=== PATIENT | female | born 1990 | race Caucasian/White ===

== ENCOUNTER 2016-05-08 02:02 | Observation (INO) ==
--- NOTE | 2016-05-08 03:02 | Discharge Summary ---
Date of Encounter: 05/08/16 Time of Encounter: 03:09 - Discharge Diagnosis (1) with 38 completed weeks gestation Priority: Primary Status: Acute Comments: ([id number]) 38w 0d Followed by [facility] high scaler/GYN and [facility] cardiology. Patient is 2-3cm dilation, 70-80% effaced per nursing. Mild contractions every 9-10 minutes. NST reactive in 130-140's. Discussed with the patient the need for continuous maternal cardiac monitoring and our inability to do so at [facility] labor and delivery. Discussed the utility of delivering at [facility] where she is currently followed by PROFESSOR OF LITERACY and cardiology. Patient mentioned she has an entire care team at [facility]. She was hoping to deliver at [facility] for the sole reason this is where her other children were delivered. She also mentioned her history of difficult labor. She is understanding of the need for her to follow at a higher center of care where her care team is already established. We discussed she is currently safe and stable for discharge and is strongly encouraged to follow-up tonight with [facility] for re-evaluation. After discussing my clinical concerns, she and her expressed understanding and agreement with the plan. We discussed return precautions should the need arise. Patient and plan discussed with my attending. (2) Cardiac murmur, unspecified Priority: Secondary Status: Chronic Comments: as above. - Discharge Medications Home Medications: Buprenorphine HCl [Subutex] 8 mg SL BID 01/18/16 [History] Vit No.129/Iron/FA [ One Daily Tablet] 1 PO DAILY 01/18/16 [ History] Albuterol Sulfate [Albuterol Inhaler] 2 puff IH Q6HR #1 hfa.aer.ad 02/21/16 [Rx] Mupirocin Calcium [Bactroban] 15 gm TP BID #1 cream..g. 02/21/16 [Rx] Ondansetron ODT [Zofran ODT] 4 mg PO Q6H #30 tab.rapdis 02/21/16 [Rx] Allergies/Adverse Reactions: Allergies No Known Allergies Allergy (Verified 02/21/16 18:30) Date of admission: 05/08/16 02:02 Primary care physician: [facility] PROFESSOR OF LITERACY [facility] Consults: none Discharging clinician: Rafa Prado Anticipated date of discharge: 05/08/16 - Patient Status Disposition: Home, Self-Care Condition: Good Functional capacity at discharge: independent ambulation Overall status at discharge: patient is back to baseline - Discharge Instructions Additional Instructions: Your NST was reactive. Cervical exam was 2-3cm dilated. Contractions every 9-10 minutes on TOCO. No rupture of membranes. You are a high risk in part due to your cardiac history. You require continuous cardiac monitoring which we are unable to perform at [facility] labor and delivery. Your sanitary plumber and exercise instructor are at [facility]. As we discussed, please present to [facility] tonight for re-evaluation. 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 Hospital course: Patient presented from home to [facility] with concerns regarding contractions. She is followed by [facility] subutex group. Followed by [facility] PROFESSOR OF LITERACY and [facility] cardiology. ([id number]) at 38w 0d. TOCO showed contractions every 9-10 minutes, described as mild by the patient. NST reactive. No SROM. Patient lives local to [facility] and preferred the convenience of presenting here vs driving to [facility]. PMH: Atrial fibrillation with failed ablation. Blood type AB+ Rh - Time spent discussing smoking cessation with patient: 3 to 10 minutes Time Attestation: Total time spent providing and/or coordinating discharge services: Time Spent: Less than 30 minutes Specific discharge activities: Follow-up with [facility] tonight. Exam - Constitutional General appearance IM: A&O X 3, pleasant, no acute distress, obese, answers questions appropriately - Respiratory Respiratory exam: Present: CTAB. Absent: decreased breath sounds - Cardiovascular Cardiovascular exam IM: Present: RRR, +S1, +S2, systolic murmur - GI/Abdominal GI/Abdominal exam IM: normal bowel sounds, soft - Extremities Exam Extremities exam IM: Present: normal capillary refill, normal inspection, pedal edema, warm. Absent: calf tenderness, tenderness - Neurological Exam Neurological exam: alert, oriented X3
== END 2016-05-08 03:22 | disposition home or self-care (01) ==
LOC: 1NENULAB
PROVIDERS: ADMIT Obstetrics & Gynecology; ATTEND Obstetrics & Gynecology